=== PATIENT | male | born 1945 | race Caucasian/White ===

== ENCOUNTER 2017-03-02 12:56 | Day surgery (SDC) | payer MEDICARE ==
[~2017-03-02 12:56] MED LIST: CHEMO THERAPY IV-CENTRAL; PRIN5TAB PO; PROT40TA PO
[2017-03-02 13:14] VITALS: BP 143/71; PULSE 57; RESP 20; TEMP 97.7; O2SAT 96
[2017-03-02] MEDS ORDERED: MARI5CAP PO (13:25)
[2017-03-02] MEDS ORDERED: OXYC-392 PO (13:25)
[2017-03-02] MEDS ORDERED: IOHEXOL 350 MG/ML 50 ML BTL (for RAD DIAG) ONE (14:43)
--- NOTE | 2017-03-02 16:03 | PD.RAD ---
Post Procedure Progress Note Pre Procedure Diagnosis: (1) Malfunctioning port catheter Post Procedure Diagnosis: (1) Malfunctioning port catheter Procedure Date: Mar 02, 2017 Supervising Radiologist: Johnie Gallo Proceduralist/Assist: Liss Moore, RT(R), Hailey Benjamin RT(R)() Plan of Activity Patient to Unit: [facility] See PACS Report for procedural detail/treatment Central Venous Access Device Procedure 1 Right Internal Jugular Infusaport Evaluation single lumen Findings: Port aspirates and flushes without difficulty. Small fibrin sheath at cath tip but no obstruction to flow. Johnie Gallo MD Mar 02, 2017 16:03
--- NOTE | 2017-03-03 12:08 | RADRPT ---
EXAM DATE/TIME: 03/02/2017 14:43 [facility] COMPARISON: No previous studies available for comparison. INDICATIONS : Patient in need of port evaluation. 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 Access of Wguonu-t-lyog. 2. Port patency injection. The risks, benefits and alternatives to the procedure were explained and verbal and written consent w as obtained. The patient was placed supine. The port was prepped in sterile fashion. Full sterile t echnique was used, including cap, mask, sterile gloves and gown, and a large sterile sheet. Hand hyg iene and 2% chlorhexidine prep was utilized per protocol for cutaneous antisepsis with appropriate dr y time for site. The previously placed port was accessed and positive contrast was injected for evaluation. Injection demonstrates a fibrin sheath at the catheter tip which would explain the intermittent difficulty in aspiration. However, with the patient supine, the catheter aspirated and flushed without difficulty. CONCLUSION: 1. Fibrin sheath at the catheter tip. 2. However, catheter aspirated and flushed without difficulty with the patient in the supine position . Johnie Gallo MD on March 03, 2017 at 12:00 Board Certified Radiologist. This report was verified electronically.
== END 2017-03-02 15:05 | disposition home or self-care (01) ==
LOC: HROP 12:56 → HRIP 12:59 → HROP 15:05
PROVIDERS: ATTEND Internal Medicine Hematology & Oncology
DX: Z45.2 Encounter for adjustment and management of vascular access device (principal)
CPT/HCPCS: J1642; Q9967; 36598